=== PATIENT | male | born 2000 | race Caucasian/White ===

== ENCOUNTER 2020-04-21 10:50 | Emergency (ER) | payer OTHER ==
[2020-04-21 11:07] VITALS: BP 133/76; PULSE 110; RESP 18; TEMP 98.5
[2020-04-21] MEDS ORDERED: PROPARACAINE 0.5% OPHTH DROPS 15 ML BTL RIGHT EYE STA (11:08)
[2020-04-21] MEDS ORDERED: FLUORESCEIN STRIPS 1 MG STRIP RIGHT EYE ONE (11:08)
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
== END 2020-04-21 11:50 | disposition home or self-care (01) ==
LOC: EC 10:50
DX: S00.11XA Contusion of right eyelid and periocular area, initial encounter (principal); F17.290 Nicotine dependence, other tobacco product, uncomplicated; Z88.1 Allergy status to other antibiotic agents; W22.8XXA Striking against or struck by other objects, initial encounter; Y92.89 Other specified places as the place of occurrence of the external cause; Y93.89 Activity, other specified
CPT/HCPCS: 99283